=== PATIENT | male | born 1975 | race American Indian/Alaskan Native ===

== ENCOUNTER 2017-12-22 21:45 | Emergency (ER) | payer OTHER ==
[2017-12-22 23:20] VITALS: BP 151/98
[2017-12-22] MEDS ORDERED: MOTRIN ONE (23:39)
[2017-12-22] MEDS ORDERED: MOTRIN PO ONE (23:50)
[2017-12-23] MEDS ORDERED: PERCOCET 5/325 PO ONE (01:37)
--- NOTE | 2017-12-23 01:37 | Emergency Department Report ---
ED Lower Extremity HPI - General Chief Complaint: Extremity Injury, Lower Stated Complaint: KNEE PAIN Time Seen by Provider: 12/23/17 01:31 Source: patient Mode of arrival: Stretcher Limitations: Physical Limitation - History of Present Illness Initial Comments: 42-year-old -Stateless male with a known history of bilateral knee pain with reconstruction surgery comes in status post left knee given out and fell on it. Patient reports this happened approximately 736 on Sunday night. Patient baseline is ambulating with a walker. Patient reports that he just gave out complains of swelling in excruciating pain. Patient has a past medical history of several left patellar tendon repairs. Which the last one was on 10/23/2017, April 2017. His orthopedist surgeon was Dr. Earnest Tafoya. Patient was in rehabilitation discharge of November 2017. He does have a past medical history of hypertension, type 2 diabetes, hyperlipidemia and SIR patient also has a past medical history of a DVT MD Complaint: knee injury -: This evening Time: 19:35 Injury: Knee: Left Type of Injury: blunt Place: home Severity scale (0 -10): 10 Improves With: nothing Worsens With: weight bearing, movement, palpation Context: fall Associated Symptoms: swelling, unable to bear weight - Related Data Home Medications Medication Instructions Recorded Confirmed Last Taken Amlodipine Besylate/Benazepril 1 each PO DAILY 05/24/15 10/20/17 Unknown [Amlodipine-Benazepril 10-20 mg] Fenofibrate 48 mg PO HS 10/20/17 10/20/17 Unknown Janumet 50-500 mg Tablet 1 caplet PO BID 10/20/17 10/20/17 Unknown diazePAM TAB [Valium] 10 mg PO TID PRN 10/20/17 10/20/17 Unknown Previous Rx's Medication Instructions Recorded Last Taken Type oxyCODONE /ACETAMINOPHEN [Percocet 1 tab PO Q6H PRN #14 tablet 12/23/17 Unknown Rx 5/325 mg] Allergies Allergy/AdvReac Type Severity Reaction Status Date / Time No Known Allergies Allergy Unverified 05/24/15 17:08 ED Review of Systems ROS: Stated complaint: KNEE PAIN Other details as noted in HPI Comment: All other systems reviewed and negative Gastrointestinal: denies: abdominal pain, nausea, diarrhea Genitourinary: denies: urgency, dysuria Musculoskeletal: joint swelling (left knee), arthralgia (left knee) Skin: denies: rash, lesions Psychiatric: denies: anxiety, depression ED Past Medical Hx - Past Medical History Hx Hypertension: Yes Hx Congestive Heart Failure: No Hx Diabetes: Yes Hx Asthma: No Hx COPD: No - Surgical History Additional Surgical History: Bilateral knee surgery. - Social History Smoking Status: Never Smoker Substance Use Type: None - Medications Home Medications: Home Medications Medication Instructions Recorded Confirmed Last Taken Type Amlodipine Besylate/Benazepril 1 each PO DAILY 05/24/15 10/20/17 Unknown History [Amlodipine-Benazepril 10-20 mg] Fenofibrate 48 mg PO HS 10/20/17 10/20/17 Unknown History Janumet 50-500 mg Tablet 1 caplet PO BID 10/20/17 10/20/17 Unknown History diazePAM TAB [Valium] 10 mg PO TID PRN 10/20/17 10/20/17 Unknown History oxyCODONE /ACETAMINOPHEN [Percocet 1 tab PO Q6H PRN #14 tablet 12/23/17 Unknown Rx 5/325 mg] ED Physical Exam - General Limitations: Physical Limitation General appearance: alert, in no apparent distress - Head Head exam: Present: atraumatic, normocephalic - Eye Eye exam: Present: EOMI - ENT ENT exam: Present: mucous membranes moist - Respiratory Respiratory exam: Present: normal lung sounds bilaterally. Absent: respiratory distress - Cardiovascular Cardiovascular Exam: Present: regular rate, normal rhythm. Absent: systolic murmur, diastolic murmur, rubs, gallop - Expanded Lower Extremity Exam Left Knee exam: Present: tenderness, swelling, effusion, full knee extension. Absent : full ROM, laceration, ecchymosis Lower Leg exam: Absent: tenderness, swelling, abrasion Ankle exam: Present: normal inspection, full ROM. Absent: tenderness, swelling Neuro vascular tendon exam: Present: no vascular compromise. Absent: abnormal cap refill Gait: Positive: unable to bear weight - Neurological Exam Neurological exam: Present: alert, oriented X3 - Psychiatric Psychiatric exam: Present: normal affect, normal mood - Skin Skin exam: Present: warm, dry, intact, normal color. Absent: rash ED Course Vital Signs 12/22/17 12/22/17 23:13 23:43 Temperature 98.9 F 98.9 F Pulse Rate 114 H 110 H Respiratory 18 18 Rate Blood Pressure 151/98 151/98 O2 Sat by Pulse 99 99 Oximetry ED Lower Extremity MDM - Radiology Data Radiology results: report reviewed FINDINGS: Three views of the left knee obtained. New from prior study, there is a transverse fracture extending through the mid patella. There is separation of fracture segments by approximately 2.4 centimeters. Prominent soft tissue swelling. There fragmentation at the inferior margin the patella is seen on prior study compatible sequelae of prior avulsive injury. No other acute fracture. Medial lateral joint space compartments are grossly preserved. IMPRESSION: Acute transverse fracture of the mid patella with separation of the fracture segments by 2.4 centimeters. Prominent soft tissue swelling. Prior avulsive injury involving the inferior margin of the left patella. Transcribed By: LMA Dictated By: TRAVIS MERCHANT MD Electronically Authenticated By: TRAVIS MERCHANT MD Signed Date/Time: 12/23/17199 DD/ 9 TD/TT: 12/23/17199 - Medical Decision Making Patient has been evaluated by this provider in fast track. Percocet 5/325 was given for pain management X-ray of left knee obtained that shows severe is a transverse fracture extending to the mid patella Spoke to Dr. 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 We'll discuss with patient the plan. Critical care attestation.: If time is entered above; I have spent that time in minutes in the direct care of this critically ill patient, excluding procedure time. ED Disposition Clinical Impression: Left patella fracture Qualifiers: Encounter type: initial encounter Fracture type: closed Fracture morphology: transverse Fracture alignment: displaced Qualified Code(s): S82.032A - Displaced transverse fracture of left patella, initial encounter for closed fracture Disposition: TO HOME OR SELFCARE Is pt being admited?: No Does the pt Need Aspirin: No Condition: Stable Instructions: Patellar Fracture (ED) Additional Instructions: Please take pain medication as prescribed. Please call Dr. Tafoya's office Sunday morning to be seen on Sunday. Please wear knee immobilizer and use wheelchair for mobility until you are evaluated by Dr. Tafoya. I recommend no weightbearing at all on that left knee. Prescriptions: oxyCODONE /ACETAMINOPHEN [Percocet 5/325 mg] 1 tab PO Q6H PRN #14 tablet PRN Reason: Pain, Moderate (4-6) Referrals: PRIMARY CARE, [Primary Care Provider] - 3-5 Days EARNEST TAFOYA MD [Staff Physician] - 3-5 Days
--- NOTE | 2017-12-23 02:01 | XRay Report ---
FINAL REPORT EXAM: XR KNEE 3V LT HISTORY: Left knee swelling and pain COMPARISON: September 2017. FINDINGS: Three views of the left knee obtained. New from prior study, there is a transverse fracture extending through the mid patella. There is separation of fracture segments by approximately 2.4 centimeters. Prominent soft tissue swelling. There fragmentation at the inferior margin the patella is seen on prior study compatible sequelae of prior avulsive injury. No other acute fracture. Medial lateral joint space compartments are grossly preserved. IMPRESSION: Acute transverse fracture of the mid patella with separation of the fracture segments by 2.4 centimeters. Prominent soft tissue swelling. Prior avulsive injury involving the inferior margin of the left patella.
== END 2017-12-23 03:20 | disposition home or self-care (01) ==
LOC: ED 21:45
DX: S82.032A Displaced transverse fracture of left patella, initial encounter for closed fracture (principal); I10 Essential (primary) hypertension; E11.9 Type 2 diabetes mellitus without complications; W01.198A Fall on same level from slipping, tripping and stumbling with subsequent striking against other object, initial encounter; Y93.89 Activity, other specified; Y92.89 Other specified places as the place of occurrence of the external cause; Y99.8 Other external cause status

== ENCOUNTER 2017-12-31 10:20 | Observation (INO) | payer OTHER ==
[~2017-12-31 10:20] MED LIST: ANCEF/STERILE WATER 2 GM/20 ML IV NR
--- NOTE | 2017-12-31 12:08 | Anesthesia Day of Surgery ---
Anesthesia Day of Surgery - Day of Surgery Patient Examined: Yes Patient H&P Reviewed: Yes Patient is NPO: Yes
--- NOTE | 2017-12-31 12:08 | Anesthesia Consultation ---
Anesthesia Consult and Med Hx Date of service: 12/31/17 - Airway Anesthetic Teeth Evaluation: Good ROM Head & Neck: Adequate Mental/Hyoid Distance: Adequate Mallampati Class: Class I Intubation Access Assessment: Good - Pulmonary Exam CTA: Yes - Cardiac Exam Cardiac Exam: RRR - Pre-Operative Health Status ASA Pre-Surgery Classification: ASA3 Proposed Anesthetic Plan: General - Pre-Anesthesia Comment Pre-Anesthesia Comments: Patient tolerates 4 METs. Limited by bilateral leg weakness (since 2017). Denies EARNEST. No Chest Pain or SOB. No cold or flu. No N/V or motion sickness - Pulmonary Hx Smoking: No Hx Asthma: No COPD: No Hx Pneumonia: No Hx Sleep Apnea: No (EARNEST PRE SCREEN HIGH RISK) - Cardiovascular System Hx Hypertension: Yes (X 5 YRS) - Central Nervous System Hx Psychiatric Problems: No - Other Systems Hx Cancer: No
[2017-12-31] MEDS ORDERED: DILAUDID ONE ×3 (12:13→15:14)
[2017-12-31] MEDS ORDERED: DIPRIVAN 10 MG/ML IV ONE (12:14)
[2017-12-31] MEDS ORDERED: VERSED ONE (12:47)
[2017-12-31] MEDS ORDERED: NAROPIN O.5% ONE (12:47)
[2017-12-31] MEDS ORDERED: SUBLIMAZE ONE ×2 (12:48→13:59)
[2017-12-31] MEDS ORDERED: LACTATED RINGERS 1,000 ML IV SCH (13:17)
[2017-12-31] MEDS ORDERED: ZOFRAN ONE (14:29)
[2017-12-31] MEDS ORDERED: XYLOCAINE MPF 2% ONE (14:29)
[2017-12-31] MEDS ORDERED: BREVIBLOC IV ONE (14:29)
[2017-12-31] MEDS ORDERED: DEMEROL ONE (15:14)
[2017-12-31] MEDS ORDERED: NORMODYNE IV ONE ×2 (15:15→15:19)
[2017-12-31] MEDS ORDERED: DEMEROL IV PRN (15:20)
[2017-12-31] MEDS ORDERED: LACTATED RINGERS 1,000 ML ONE (15:21)
--- NOTE | 2017-12-31 15:31 | XRay Report ---
LEFT KNEE, 2 VIEWS History: Left patellar fracture. Findings: Frontal and lateral fluoroscopic images of the left knee were obtained during surgery. The images demonstrate open reduction and internal fixation of a transverse patellar fracture. Alignment is near-anatomic. Please correlate with the operative report as needed. Impression: Open reduction and internal fixation of a left patella fracture.
[2017-12-31] MEDS ORDERED: DILAUDID IV PRN (15:33)
[2017-12-31] MEDS ORDERED: ROXICODONE PO ONE (17:00)
--- NOTE | 2017-12-31 17:48 | Procedure Note ---
Date of procedure: 12/31/17 Pre-op diagnosis: Displaced left patellar fracture Post-op diagnosis: same Procedure: open reduction internal fixation left patella Procedure The patient was brought to the OR and following a femoral nerve block for postop pain management he was then placed onto the OR table in the supine position. Using Mac anesthesia the patient was anesthetized followed by routine prep and drape of the left lower extremity. A timeout procedure was done to identify the patient and the correct operative site. Utilizing the previous midline incision for the patient's patellar tendon rupture incision was taken down sharply through skin and subcutaneous the fracture site was identified patient was noted to have fairly large separation of the fracture fragments with a large hemarthrosis encountered and subsequently drained patient also was noted to have an organizing hematoma at the fracture site this hematoma was debrided The knee joint was inspected there did not appear to be any ostial cartilaginous injuries deep within the joint itself next the fracture fragments were then manipulated into a more reduced position and held by way of 2 large bone clamps and AP and lateral view was obtained using C-arm fluoroscopy the fracture fragments appeared to be anatomically reduced. 2 parallel K wires were inserted into the patella under C-arm visualization this was then followed by insertion of 2 cannulated screws to compress the fracture site again AP and lateral views were obtained showing good reduction of the fracture and placement of the cannulated screws. Following this the medial and lateral retinacula I were repaired using #1 Vicryl the subcutaneous tissues were closed with 0 and 2-0 Vicryl a zip line suture was placed on the skin followed by application of routine postoperative dressings. The patient was placed in a knee immobilizer with a Cryo/Cuff cooling device for postop pain management and swelling. The patient was extubated and was taken to postanesthesia recovery in a stable condition Anesthesia: MAC, regional Surgeon: JUVENAL CANO (Mable Ocampo, 1st assist) Estimated blood loss: minimal Pathology: none Condition: stable Disposition: PACU
[2017-12-31] MEDS ORDERED: MORPHINE IV PRN (18:05)
[2017-12-31] MEDS ORDERED: SODIUM CHLORIDE FLUSH SYRINGE 10 ML IV SCH (19:00)
--- NOTE | 2017-12-31 20:17 | Post Anesthesia Evaluation ---
- Post Anesthesia Evaluation Patient Participated: Yes Airway Patent: Yes Stable Respiratory Function: Yes Nausea/Vomiting: No Temp > 96.8F: Yes Pain Manageable: Yes Adequeate Hydration: Yes Anesthesia Complications: No Block Receding Appropriately: Not Applicable Patient on Ventilator: No
[2017-12-31] MEDS ORDERED: APRESOLINE IV PRN (21:28)
[2017-12-31] MEDS: NORCO 5/325 PO PRN (23:59)
--- NOTE | 2018-01-01 08:52 | Progress Note ---
Assessment and Plan s/p ORIF left patellar fracture doing well will dc to home today with f/u appointment in office 10 days Subjective Date of service: 01/01/18 Interval history: c/o mild incisional pain, otherwise doing ok Objective Vital signs: Vital Signs - 12hr 01/01/18 01/01/18 00:13 05:01 Temperature 99.0 F 99.5 F Pulse Rate 96 H 106 H Respiratory 18 18 Rate Blood Pressure 144/90 142/90 O2 Sat by Pulse 99 96 Oximetry Incision: healing, clean and dry Weight bearing status: full - Labs CBC & BMP: 01/01/18 04:07 Labs: Abnormal lab results 12/31/17 12/31/17 01/01/18 Range/Units 12:13 15:31 00:23 Creatinine (0.8-1.5) mg/dL POC Glucose 126 H 136 H 133 H (70-105) 01/01/18 Range/Units 04:07 Creatinine 0.6 L (0.8-1.5) mg/dL POC Glucose (70-105)
[2018-01-01] MEDS: NORCO 5/325 PO PRN (09:23)
[2018-01-01 09:38] VITALS: BP 130/77
[2018-01-01] MEDS ORDERED: LOVENOX SUB-Q SCH (10:00)
== END 2018-01-01 13:20 | disposition home or self-care (01) ==
LOC: OR 10:20 → 3B-SURG 17:16
PROVIDERS: ADMIT Orthopaedic Surgery; ATTEND Orthopaedic Surgery
DX: S82.002A Unspecified fracture of left patella, initial encounter for closed fracture (principal); F41.9 Anxiety disorder, unspecified; F32.9 Major depressive disorder, single episode, unspecified; E11.9 Type 2 diabetes mellitus without complications; I10 Essential (primary) hypertension; E78.00 Pure hypercholesterolemia, unspecified; R12 Heartburn; G47.30 Sleep apnea, unspecified; W18.30XA Fall on same level, unspecified, initial encounter
CPT/HCPCS: 27524; 36415; 64450; 73560; 82565; 82962; 84132; 96372; 96374; 96375; 97161; C1713; G0378; J0690; J1170; J1650; J2175; J2250; J2270; J2405; J2704; J2795; J3010; J7120

== ENCOUNTER 2018-07-08 12:49 | Emergency (ER) | payer OTHER ==
--- NOTE | 2018-07-08 13:20 | Emergency Department Report ---
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 Due to findings the following was ordered: UA, labs ED Disposition for MSE Condition: Stable
[2018-07-08 14:12] LABS: Basophils # (Auto) 0.2 K/mm3 (0.0-0.1); Basophils % (Auto) 1.2 % (0.0-1.8); Eosinophils # (Auto) 0.1 K/mm3 (0.0-0.4); Eosinophils % (Auto) 0.7 % (0.0-4.3); Hematocrit 46.2 % (35.5-45.6); Hemoglobin 14.5 gm/dl (11.8-15.2); Lymphocytes # (Auto) 2.7 K/mm3 (1.2-5.4); Lymphocytes % (Auto) 20.6 % (13.4-35.0); Mean Corpuscular HGB Conc 31 % (32-34); Mean Corpuscular Volume 79 fl (84-94); Monocytes # (Auto) 0.9 K/mm3 (0.0-0.8); Monocytes % (Auto) 6.9 % (0.0-7.3); Platelet Count 429 K/mm3 (140-440); Red Blood Count 5.86 M/mm3 (3.65-5.03); Red Cell Distribution Width 14.2 % (13.2-15.2)
[2018-07-08 14:29] LABS: Alanine Aminotransferase 35 units/L (7-56); Albumin 4.3 g/dL (3.9-5); BUN/Creatinine Ratio 13; Blood Urea Nitrogen 10 mg/dL (9-20); Hemolysis Index 16
[2018-07-08 16:39] LABS: Bilirubin,Urine NEG (Negative); Blood,Urine NEG (Negative); Color,Urine Yellow (Yellow); Mucus,Urine FEW /HPF; Protein,Urine <15 mg/dL mg/dL (Negative); WBC,Urine < 1.0 /HPF (0.0-6.0)
--- NOTE | 2018-07-08 17:10 | Emergency Department Report ---
HPI - General Chief Complaint: Weakness Time Seen by Provider: 07/08/18 13:17 - HPI HPI: 43-year-old -[place] male presents to the ED with generalized weakness, has bilateral knee issues, for which she is getting physical therapy. States that he has been feeling weak and physical therapy. Denies any chest pain, shortness of breath. Denies any focal weakness. ED Past Medical Hx - Past Medical History Hx Hypertension: Yes (X 5 YRS) Hx Congestive Heart Failure: No Hx Diabetes: Yes Hx GERD: Yes Hx Asthma: No Hx COPD: No Hx HIV: No - Surgical History Additional Surgical History: Bilateral knee surgery. - Social History Smoking Status: Never Smoker Substance Use Type: None - Medications Home Medications: Home Medications Medication Instructions Recorded Confirmed Last Taken Type Amlodipine Besylate/Benazepril 1 each PO DAILY 05/24/15 12/31/17 12/31/17 History [Amlodipine-Benazepril 10-20 mg] Fenofibrate 48 mg PO HS 10/20/17 12/31/17 12/29/17 History Janumet 50-500 mg Tablet 1 caplet PO BID 10/20/17 12/31/17 12/29/17 History HYDROcodone/ACETAMINOPHEN 1 tab PO PRN PRN 12/27/17 12/31/17 12/29/17 History [Hydrocodone-Acetamin 5-325 mg] Oxycodone HCl [oxyCODONE TAB] 10 mg PO Q6H PRN #30 tablet 12/31/17 Unknown Rx Zolpidem [Ambien] 10 mg PO QHS PRN #10 tab 01/01/18 Unknown Rx Ferrous Sulfate [Iron 325 MG] 325 mg PO BID #15 tablet 07/08/18 Unknown Rx ED Review of Systems ROS: Stated complaint: WEAKNESS/FATIGUE Other details as noted in HPI Comment: All other systems reviewed and negative Cardiovascular: denies: chest pain, palpitations Endocrine: denies: excessive sweating Gastrointestinal: denies: abdominal pain, nausea Skin: denies: rash Neurological: weakness. denies: headache Physical Exam - Physical Exam Vital Signs: Vital Signs 07/08/18 13:18 Temperature 98.4 F Pulse Rate 98 H Respiratory 18 Rate Blood Pressure 130/81 O2 Sat by Pulse 99 Oximetry Physical Exam: - Physical Exam Physical Exam: - General Limitations: No Limitations General appearance: alert, in no apparent distress. - Head Head exam: Present: atraumatic, normocephalic - Eye Eye exam: Present: normal appearance - ENT ENT exam: Present: mucous membranes moist - Neck Neck exam: Present: normal inspection - Respiratory Respiratory exam: Present: normal lung sounds bilaterally. Absent: respiratory distress - Cardiovascular Cardiovascular Exam: Present: normal rhythm. Absent: systolic murmur, diastolic murmur, rubs, gallop - GI/Abdominal GI/Abdominal exam: Present: soft, normal bowel sounds - Extremities Exam Extremities exam: Present: normal inspection - Back Exam Back exam: Present: normal inspection - Neurological Exam Neurological exam: Present: alert, oriented X3 - Psychiatric Psychiatric exam: normal affect and mood - Skin Skin exam: Present: warm, dry, intact, normal color. Absent: rash ED Course Vital Signs 07/08/18 13:18 Temperature 98.4 F Pulse Rate 98 H Respiratory 18 Rate Blood Pressure 130/81 O2 Sat by Pulse 99 Oximetry ED Medical Decision Making - Lab Data Result diagrams: 07/08/18 13:33 07/08/18 13:33 - Medical Decision Making Microcytic anemia, prescription firing given, advised to follow up with PCP VERONICA. - Differential Diagnosis flu, URI, myositis Critical care attestation.: If time is entered above; I have spent that time in minutes in the direct care of this critically ill patient, excluding procedure time. ED Disposition Clinical Impression: Weakness, Microcytic anemia Disposition: DC-01 TO HOME OR SELFCARE Is pt being admited?: No Does the pt Need Aspirin: No Condition: Stable Prescriptions: Ferrous Sulfate [Iron 325 MG] 325 mg PO BID #15 tablet Referrals: CELENA ALICIA MD [Primary Care Provider] - 3-5 Days
[2018-07-09 19:04] VITALS: BP 130/80
== END 2018-07-08 17:26 | disposition home or self-care (01) ==
LOC: ED 12:49
DX: D50.9 Iron deficiency anemia, unspecified (principal); I10 Essential (primary) hypertension; E11.9 Type 2 diabetes mellitus without complications; K21.9 Gastro-esophageal reflux disease without esophagitis
CPT/HCPCS: 36415; 80053; 81001; 82550; 85025; 99283

== ENCOUNTER 2018-08-18 22:08 | Emergency (ER) | payer SELFPAY ==
[2018-08-18 22:21] VITALS: BP 148/92
--- NOTE | 2018-08-19 01:09 | Emergency Department Report ---
- General Chief Complaint: Upper Respiratory Infection Stated Complaint: SINUS INFECTION /BP Time Seen by Provider: 08/18/18 23:57 Source: patient Mode of arrival: Ambulatory Limitations: No Limitations - History of Present Illness Initial Comments: Pt is a 43 yo male who presents to the ED with c/o a nasal congestion that began a year ago. The patient has associated nasal discharge, chills, post nasal drip, itchy throat. The patient states he has been seeing his PCP and has been placed on amoxicillin, augmentin, bactrim, flonase, zyrtec, and steroids twice. The patient has not seen an ENT doctor. he denies any fever. PMHx of HTN/DM. - Related Data Home Medications Medication Instructions Recorded Confirmed Last Taken Amlodipine Besylate/Benazepril 1 each PO DAILY 05/24/15 12/31/17 12/31/17 [Amlodipine-Benazepril 10-20 mg] Fenofibrate 48 mg PO HS 10/20/17 12/31/17 12/29/17 Janumet 50-500 mg Tablet 1 caplet PO BID 10/20/17 12/31/17 12/29/17 HYDROcodone/ACETAMINOPHEN 1 tab PO PRN PRN 12/27/17 12/31/17 12/29/17 [Hydrocodone-Acetamin 5-325 mg] Previous Rx's Medication Instructions Recorded Last Taken Type Oxycodone HCl [oxyCODONE TAB] 10 mg PO Q6H PRN #30 tablet 12/31/17 Unknown Rx Zolpidem [Ambien] 10 mg PO QHS PRN #10 tab 01/01/18 Unknown Rx Ferrous Sulfate [Iron 325 MG] 325 mg PO BID #15 tablet 07/08/18 Unknown Rx Levocetirizine Dihydrochloride 5 mg PO DAILY #30 tablet 08/19/18 Unknown Rx [Xyzal] Loratadine [Claritin] 10 mg PO DAILY #20 tablet 08/19/18 Unknown Rx Ofloxacin 0.3% [Floxin 0.3% Otic] 10 drops OT DAILY 7 Days #1 bottle 08/19/18 Unknown Rx Olopatadine HCl [Patanase] 1 spray NS DAILY #1 spray.pump 08/19/18 Unknown Rx Sea Salt/Citr/Cit AC/Bicarb/Av 1 each NS DAILY #14 powd.pack 08/19/18 Unknown Rx [Nasalcare Rinse Kit] Allergies Allergy/AdvReac Type Severity Reaction Status Date / Time No Known Allergies Allergy Verified 12/27/17 15:48 ED Review of Systems ROS: Stated complaint: SINUS INFECTION /BP Other details as noted in HPI Comment: All other systems reviewed and negative ED Past Medical Hx - Past Medical History Hx Hypertension: Yes (X 5 YRS) Hx Congestive Heart Failure: No Hx Diabetes: Yes Hx GERD: Yes Hx Asthma: No Hx COPD: No Hx HIV: No - Surgical History Additional Surgical History: Bilateral knee surgery. - Social History Smoking Status: Never Smoker Substance Use Type: None - Medications Home Medications: Home Medications Medication Instructions Recorded Confirmed Last Taken Type Amlodipine Besylate/Benazepril 1 each PO DAILY 05/24/15 12/31/17 12/31/17 History [Amlodipine-Benazepril 10-20 mg] Fenofibrate 48 mg PO HS 10/20/17 12/31/17 12/29/17 History Janumet 50-500 mg Tablet 1 caplet PO BID 10/20/17 12/31/17 12/29/17 History HYDROcodone/ACETAMINOPHEN 1 tab PO PRN PRN 12/27/17 12/31/17 12/29/17 History [Hydrocodone-Acetamin 5-325 mg] Oxycodone HCl [oxyCODONE TAB] 10 mg PO Q6H PRN #30 tablet 12/31/17 Unknown Rx Zolpidem [Ambien] 10 mg PO QHS PRN #10 tab 01/01/18 Unknown Rx Ferrous Sulfate [Iron 325 MG] 325 mg PO BID #15 tablet 07/08/18 Unknown Rx Levocetirizine Dihydrochloride 5 mg PO DAILY #30 tablet 08/19/18 Unknown Rx [Xyzal] Loratadine [Claritin] 10 mg PO DAILY #20 tablet 08/19/18 Unknown Rx Ofloxacin 0.3% [Floxin 0.3% Otic] 10 drops OT DAILY 7 Days #1 bottle 08/19/18 Unknown Rx Olopatadine HCl [Patanase] 1 spray NS DAILY #1 spray.pump 08/19/18 Unknown Rx Sea Salt/Citr/Cit AC/Bicarb/Av 1 each NS DAILY #14 powd.pack 08/19/18 Unknown Rx [Nasalcare Rinse Kit] ED Physical Exam - General Limitations: No Limitations General appearance: alert, in no apparent distress - Head Head exam: Present: atraumatic, normocephalic - Eye Eye exam: Present: normal appearance, PERRL - ENT ENT exam: Present: normal orophraynx, other (pale, boggy turbinates bilaterally with clear nasal discharge, right ear canal with erythema present, bilateral TMs, left ear canal is normal) - Respiratory Respiratory exam: Present: normal lung sounds bilaterally. Absent: respiratory distress, wheezes, rales, rhonchi, stridor, chest wall tenderness, accessory muscle use, decreased breath sounds, prolonged expiratory - Cardiovascular Cardiovascular Exam: Present: regular rate, normal rhythm, normal heart sounds. Absent: systolic murmur, diastolic murmur, rubs, gallop - Neurological Exam Neurological exam: Present: alert, oriented X3 - Psychiatric Psychiatric exam: Present: normal affect, normal mood - Skin Skin exam: Present: warm, dry, intact ED Course Vital Signs 08/18/18 08/18/18 22:13 22:23 Temperature 98.5 F 98.5 F Pulse Rate 92 H 89 Respiratory 18 16 Rate Blood Pressure 148/92 Blood Pressure 148/92 [Left] O2 Sat by Pulse 99 99 Oximetry ED Medical Decision Making - Medical Decision Making Pt is a 43 yo male who presents to the ED with c/o a nasal congestion that began a year ago. The patient has associated nasal discharge, chills, post nasal drip, itchy throat. The patient states he has been seeing his PCP and has been placed on amoxicillin, augmentin, bactrim, flonase, zyrtec, and steroids twice. The patient has not seen an ENT doctor. he denies any fever. PMHx of HTN/DM. on examination pt has pale, boggy turbinates bilaterally with clear nasal discharge, no erythema of the turbinates, no purulent discharge in the nares, pt has erythema of the right ear canal most likely otitis externa, given abx drops. pt also given claritin, patanase, xyzal, and nasal rinse kit. advised to use the nasal rinse kit first then do the patanase. advised pt to follow up with his PCP in the next 2-3 days for reexamination and to discuss evaluation by ENT and aquarium specialist. pt given list of ENT in the area. advised to return to the ED fo r any new or worsening symptoms. Critical care attestation.: If time is entered above; I have spent that time in minutes in the direct care of this critically ill patient, excluding procedure time. ED Disposition Clinical Impression: Allergic rhinitis Qualifiers: Allergic rhinitis trigger: unspecified Allergic rhinitis seasonality: unspecified Qualified Code(s): J30.9 - Allergic rhinitis, unspecified Otitis externa Qualifiers: Otitis externa type: unspecified type Chronicity: acute Laterality: right Qualified Code(s): H60.501 - Unspecified acute noninfective otitis externa, right ear Disposition: - TO HOME OR SELFCARE Is pt being admited?: No Does the pt Need Aspirin: No Condition: Stable Instructions: Otitis Externa (ED), Allergic Rhinitis (ED) Additional Instructions: Please use all medication as prescribed. Please follow up with an ENT in the next 2-3 days. Please follow up with your primary care doctor in the next 2-3 days and discuss follow up with ENT and aquarium specialist. use warm nasal washes before you use olopatadine. return to the emergency room for any new or worsening symptoms. Norris Soriano MD, ENT Address: [address] [place] [address] [address], [place] [id number] Prescriptions: Loratadine [Claritin] 10 mg PO DAILY #20 tablet Ofloxacin 0.3% [Floxin 0.3% Otic] 10 drops OT DAILY 7 Days #1 bottle Sea Salt/Citr/Cit AC/Bicarb/Av [Nasalcare Rinse Kit] 1 each NS DAILY #14 powd.pack Olopatadine HCl [Patanase] 1 spray NS DAILY #1 spray.pump Levocetirizine Dihydrochloride [Xyzal] 5 mg PO DAILY #30 tablet Referrals: [facility] [Other] - 2-3 Days MOODY FINNEGAN MD [Staff Physician] - 3-5 Days Time of Disposition: 01:11 Print Language: KOREAN
== END 2018-08-19 01:27 | disposition home or self-care (01) ==
LOC: ED 22:08
DX: J30.9 Allergic rhinitis, unspecified (principal); H60.501 Unspecified acute noninfective otitis externa, right ear; I10 Essential (primary) hypertension; E11.9 Type 2 diabetes mellitus without complications; K21.9 Gastro-esophageal reflux disease without esophagitis; Z79.899 Other long term (current) drug therapy
CPT/HCPCS: 99282

== ENCOUNTER 2019-02-11 09:20 | Emergency (ER) | payer OTHER ==
[2019-02-11 12:12] LABS: Basophils # (Auto) 0.1 K/mm3 (0.0-0.1); Eosinophils # (Auto) 0.1 K/mm3 (0.0-0.4); Eosinophils % (Auto) 0.6 % (0.0-4.3); Monocytes # (Auto) 0.6 K/mm3 (0.0-0.8); Monocytes % (Auto) 7.2 % (0.0-7.3)
[2019-02-11 12:27] LABS: Alanine Aminotransferase 15 units/L (7-56); Albumin 4.5 g/dL (3.9-5); BUN/Creatinine Ratio 12; Blood Urea Nitrogen 11 mg/dL (9-20); Calcium 9.9 mg/dL (8.4-10.2); Hemolysis Index 10
[2019-02-11 12:49] LABS: Hematocrit 43.8 % (35.5-45.6); Hemoglobin 13.7 gm/dl (11.8-15.2); Lymphocytes # (Auto) 1.7 K/mm3 (1.2-5.4); Lymphocytes % (Auto) 18.8 % (13.4-35.0); Mean Corpuscular HGB Conc 31 % (32-34); Mean Corpuscular Volume 78 fl (84-94); Platelet Count 344 K/mm3 (140-440); Red Blood Count 5.59 M/mm3 (3.65-5.03); Red Cell Distribution Width 13.4 % (13.2-15.2)
[2019-02-11 14:01] VITALS: BP 155/44
== END 2019-02-11 14:37 | disposition home or self-care (01) ==
LOC: ED 09:20
DX: M54.9 Dorsalgia, unspecified (principal); Z53.21 Procedure and treatment not carried out due to patient leaving prior to being seen by health care provider
CPT/HCPCS: 36415; 80053; 85025; 93005; 93010

== ENCOUNTER 2019-05-09 18:48 | Emergency (ER) | payer OTHER ==
[2019-05-09 19:12] VITALS: BP 146/84
--- NOTE | 2019-05-09 19:12 | Emergency Department Report ---
Chief Complaint: Extremity Injury, Lower Stated Complaint: LOWER BODY WEAK/LEG NUMB Time Seen by Provider: 05/09/19 19:07 - HPI History of Present Illness: 44 y/o male comes in for legs feeling heavy. Reports right leg has pain since Sunday. Has a PCP but has not followed up with them. S/HX knee surgery in both snapped patellar 1 year ago. MSE screening note: Focused history and physical exam performed. Due to findings the following was ordered: ED Disposition for MSE Condition: Stable
--- NOTE | 2019-05-09 19:15 | Event Note ---
ED Screening Note Date of service: 05/09/19 Time: 19:14 ED Screening Note: 44 y/o male comes in for legs feeling heavy. Reports right leg has pain since Sunday. Has a PCP but has not followed up with them. S/HX knee surgery in both snapped patellar 1 year ago. This initial assessment/diagnostic orders/clinical plan/treatment(s) is/are subject to change based on patients health status, clinical progression and re- assessment by fellow clinical providers in the ED. Further treatment and workup at subsequent clinical providers discretion. Patient/guardian urged not to elope from the ED as their condition may be serious if not clinically assessed and managed. Initial orders include:
== END 2019-05-09 19:10 | disposition home or self-care (01) ==
LOC: ED 18:48
DX: M79.669 Pain in unspecified lower leg (principal)
CPT/HCPCS: 99282

== ENCOUNTER 2020-05-10 09:46 | Outpatient (CLI) | payer MEDICARE ==
--- NOTE | 2020-05-10 10:22 | XRay Report ---
LUMBOSACRAL SPINE 5 VIEWS INDICATION: BACK PAIN. COMPARISON: None. IMPRESSION: No acute osseous or soft tissue abnormality. Minimal disc space narrowing and facet a rthropathy is identified at L3-4. The remaining levels are within normal limits. Signer Name: Sudheer Reese Jr, MD Signed: 05/10/2020 10:17 AM Workstation Name: [id number]
== END 2020-05-10 09:47 | disposition home or self-care (01) ==
LOC: XRAY 09:46
PROVIDERS: ATTEND Orthopaedic Surgery
DX: M47.817 Spondylosis without myelopathy or radiculopathy, lumbosacral region (principal)
CPT/HCPCS: 72110

== ENCOUNTER 2020-05-20 09:43 | Outpatient (CLI) | payer MEDICARE ==
--- NOTE | 2020-05-20 13:05 | Magnetic Resonance Report ---
MRI LUMBAR SPINE 05/20/2020 INDICATION / CLINICAL INFORMATION: LOW BACK PAIN. COMPARISON: None available. FINDINGS: GENERAL OBSERVATIONS: Unenhanced MR images of the lumbar spine demonstrate no evidence of acute intra cranial abnormality. Lumbar vertebral body height and alignment is well preserved. There is some compression involving the upper endplate of T12 associated with degenerative pattern o f bone marrow signal change. There is no evidence of acute abnormality. [id number] ANALYSIS: L5-S1: Disc profile is well preserved. Mild bilateral facet degenerative changes. L4-5: Mild diffuse disc bulging and facet degenerative changes. L3-4: Minimal diffuse disc bulging and mild facet degenerative changes. L2-3: Unremarkable. L1-2: Unremarkable. BONE MARROW: No significant abnormality. 2 cm hemangioma noted at L1. SPINAL CORD/CAUDA EQUINA: PARASPINAL SOFT TISSUES: No significant abnormality. IMPRESSION: Minimal degenerative changes. No evidence of stenosis or nerve root compression. Signer Name: Kirt Haynes MD Signed: 05/20/2020 1:01 PM Workstation Name: [id number]
== END 2020-05-20 09:44 | disposition home or self-care (01) ==
LOC: MRI 09:43
PROVIDERS: ATTEND Orthopaedic Surgery
DX: M47.817 Spondylosis without myelopathy or radiculopathy, lumbosacral region (principal); M51.26 Other intervertebral disc displacement, lumbar region; M47.814 Spondylosis without myelopathy or radiculopathy, thoracic region
CPT/HCPCS: 72148

== ENCOUNTER 2020-06-24 09:32 | Day surgery (SDC) | payer MEDICARE ==
[~2020-06-24 09:32] MED LIST changes: -ANCEF/STERILE WATER 2 GM/20 ML IV NR; +BUPIVACAINE/PF (0.5%) 5 MG/1 ML 30 ML VIAL INFILTRATI ONE; +LIDOCAINE (1%) 10 MG/1 ML VIAL 20 ML MDV INFILTRATI ONE; +LIDOCAINE (1%) 10 MG/1 ML VIAL 20 ML MDV ONE
[2020-06-24 10:47] VITALS: BP 138/86
[2020-06-24] MEDS ORDERED: LIDOCAINE (1%) 10 MG/1 ML VIAL 20 ML MDV INFILTRATI ONE ×2 (12:14)
[2020-06-24] MEDS ORDERED: LIDOCAINE (1%) 10 MG/1 ML VIAL 20 ML MDV ONE (12:15)
--- NOTE | 2020-06-24 13:57 | Procedure Note ---
Date of procedure: 06/24/20 Pre-op diagnosis: Chronic low back pain Post-op diagnosis: same Procedure: Lumbar facet blocks at left L2 through L5 Procedure The patient was brought to the OR and placed prone onto the OR table, the lumbar spine was prepped and draped in the usual sterile manner. A timeout procedure was done to identify the patient and the correct levels of nerve block being performed the patient was awake during the procedure. Using C-arm fluoroscopy the L5 through L2 levels were visualized in both the PA and 45 oblique views 20-gauge spinal needles were inserted again under direct fluoroscopic control after placing the spinal needles and the correct position and Marcaine injection was performed using 1% without epinephrine. The patient tolerated the procedure and no complications Anesthesia: local Surgeon: JUVENAL CANO Estimated blood loss: minimal Pathology: none Condition: stable Disposition: observation
--- NOTE | 2020-06-24 16:24 | XRay Report ---
Lumbar spine fluoroscopy 2 views INDICATION: Low back pain IMPRESSION: The left mid and lower lumbar spine facets were targeted with 4 separate percutaneous nee dles Fluoroscopy time: 2. Fluoroscopic images: 1 minute 43 seconds. Signer Name: Antonio Cortes MD Signed: 06/24/2020 4:20 PM Workstation Name: [id number]
== END 2020-06-24 12:57 | disposition home or self-care (01) ==
LOC: OR 09:32
PROVIDERS: ATTEND Orthopaedic Surgery
DX: M54.5 Low back pain (principal); G89.29 Other chronic pain; M47.817 Spondylosis without myelopathy or radiculopathy, lumbosacral region; I10 Essential (primary) hypertension; M51.36 Other intervertebral disc degeneration, lumbar region; E78.5 Hyperlipidemia, unspecified; E11.9 Type 2 diabetes mellitus without complications; K21.9 Gastro-esophageal reflux disease without esophagitis; F32.9 Major depressive disorder, single episode, unspecified; F41.9 Anxiety disorder, unspecified; Z79.899 Other long term (current) drug therapy; Z91.81 History of falling
CPT/HCPCS: 72100; 82962

== ENCOUNTER 2020-10-06 15:32 | Emergency (ER) | payer MEDICARE ==
[2020-10-06 16:36] VITALS: BP 105/82
[2020-10-06] MEDS ORDERED: MORPHINE 4 MG/1 ML INJ IV ONE (18:06)
[2020-10-06] MEDS ORDERED: SODIUM CHLORIDE 0.9% 1000 ML 1,000 ML IV ONE (18:06)
[2020-10-06 18:46] LABS: Basophils # (Auto) 0.1 K/mm3 (0.0-0.1); Basophils % (Auto) 0.7 % (0.0-1.8); Eosinophils % (Auto) 0.3 % (0.0-4.3); Hematocrit 41.8 % (35.5-45.6); Hemoglobin 13.1 gm/dl (11.8-15.2); Lymphocytes # (Auto) 2.3 K/mm3 (1.2-5.4); Lymphocytes % (Auto) 13.6 % (13.4-35.0); Mean Corpuscular HGB Conc 31 % (32-34); Mean Corpuscular Volume 79 fl (84-94); Monocytes # (Auto) 1.1 K/mm3 (0.0-0.8); Monocytes % (Auto) 6.5 % (0.0-7.3); Platelet Count 340 K/mm3 (140-440); Red Blood Count 5.29 M/mm3 (3.65-5.03); Red Cell Distribution Width 14.5 % (13.2-15.2)
--- NOTE | 2020-10-06 18:52 | XRay Report ---
PELVIS ONE VIEW INDICATION / CLINICAL INFORMATION: pain s/p fall COMPARISON: None available. FINDINGS: BONES / JOINT(S): No acute fracture or subluxation. There is mild degenerative change in the hip join ts bilaterally. SOFT TISSUES: No significant abnormality. ADDITIONAL FINDINGS: None. Signer Name: Wilfrido Dasilva MD Signed: 10/06/2020 6:48 PM Workstation Name: [id number]
--- NOTE | 2020-10-06 18:53 | XRay Report ---
LUMBAR SPINE 3 VIEWS INDICATION: pain s/p fall COMPARISON: None. FINDINGS: There is no fracture, subluxation, or other acute radiographic abnormality of the lumbar spine. There is scoliotic-like curvature convex to the left. Pedicles appear intact. Disc space heights are maintained. Signer Name: Wilfrido Dasilva MD Signed: 10/06/2020 6:49 PM Workstation Name: [id number]
[2020-10-06 19:17] LABS: Alanine Aminotransferase 25 units/L (7-56); Albumin 4.7 g/dL (3.9-5); BUN/Creatinine Ratio 16; Blood Urea Nitrogen 13 mg/dL (9-20); Calcium 10.1 mg/dL (8.4-10.2); Hemolysis Index 33
[2020-10-06 20:11] LABS: Bilirubin,Urine NEG (Negative); Blood,Urine NEG (Negative); Color,Urine Yellow (Yellow); Mucus,Urine 1+ /HPF; Protein,Urine <15 mg/dL mg/dL (Negative); Urobilinogen,Urine < 2.0 mg/dL (<2.0)
--- NOTE | 2020-10-06 20:44 | Emergency Department Report ---
ED Fall HPI - General Chief Complaint: Fall Stated Complaint: FALL Time Seen by Provider: 10/06/20 18:01 Source: patient Mode of arrival: Ambulatory Limitations: No Limitations - History of Present Illness Initial Comments: This is a 45-year-old male nontoxic, well nourished in appearance, no acute signs of distress presents to the ED with c/o of acute lower back pain and lower abdominal pain x 1 day. Patient stated that the had a trip and fall yesterday and landed to his lower back area. Patient stated since the fall he felt sharp abdominal pains. Patient otherwise denies any other injuries or trauma. Denies any neck or mid back pain. Patient denies any loss of consciousness. Patient denies any radiation of pain. Denies any bladder or bowel instability. Patient denies any urinary symptoms. Denies any fever, chills, nausea, vomiting, headache, stiff neck, chest pain or shortness of breath. Patient denies any numbness or tingling. Denies any allergies. MD Complaint: fall -: days(s) Fall From: standing Loss of Consciousness: none Prolonged Down Time?: no Symptoms Prior to Fall: none Location: back, abdomen Severity: mild Severity scale (0 -10): 3 Quality: aching Context: tripped/slipped Associated Symptoms: abdominal pain. denies: headache, neck pain, numbness, weakness, chest paint, shortness of breath, hematuria, unable to walk, lightheaded, vertigo, confusion - Related Data Home Medications Medication Instructions Recorded Confirmed Last Taken Amlodipine Besylate/Benazepril 1 each PO DAILY 05/24/15 06/24/20 06/24/20 08:00 [Amlodipine-Benazepril 10-20 mg] Janumet 50-500 mg Tablet 1 caplet PO BID 10/20/17 06/24/20 06/23/20 09:00 Alprazolam 1 mg PO HS PRN 06/18/20 06/24/20 06/17/20 09:00 Meloxicam 15 mg PO DAILY 06/18/20 06/24/20 06/21/20 09:00 Motrin 800 MG tab 800 mg PO TID 06/18/20 06/24/20 06/24/20 02:00 Tylenol /Codeine # 3 tab 1 tab PO Q4HR PRN 06/18/20 06/18/20 Unknown Zanaflex 4mg TAB 4 mg PO BID 06/18/20 06/24/20 06/22/20 09:00 traMADoL 50 mg PO Q4HR PRN 06/18/20 06/24/20 06/24/20 02:00 Lisinopril 2.5 mg PO DAILY 06/24/20 06/24/20 06/24/20 08:00 Previous Rx's Medication Instructions Recorded Last Taken Type Cyclobenzaprine [Flexeril] 10 mg PO QHS PRN #10 tablet 10/06/20 Unknown Rx Naproxen 500 mg PO Q12H PRN #12 tablet 10/06/20 Unknown Rx Allergies Allergy/AdvReac Type Severity Reaction Status Date / Time No Known Allergies Allergy Verified 05/09/19 18:49 ED Review of Systems ROS: Stated complaint: FALL Other details as noted in HPI Comment: All other systems reviewed and negative Constitutional: denies: chills, fever Eyes: denies: eye pain, eye discharge, vision change ENT: denies: ear pain, throat pain Respiratory: denies: cough, shortness of breath, wheezing Cardiovascular: denies: chest pain, palpitations Endocrine: no symptoms reported Gastrointestinal: abdominal pain. denies: nausea, vomiting, diarrhea, constipation, hematemesis, melena, hematochezia Genitourinary: denies: urgency, dysuria Musculoskeletal: back pain. denies: joint swelling, arthralgia Skin: denies: rash, lesions Neurological: denies: headache, weakness, paresthesias Psychiatric: denies: anxiety, depression Hematological/Lymphatic: denies: easy bleeding, easy bruising ED Past Medical Hx - Past Medical History Previous Medical History?: Yes Hx Hypertension: Yes (X 5 YRS) Hx Congestive Heart Failure: No Hx Diabetes: Yes Hx GERD: Yes Hx Asthma: No Hx COPD: No Hx HIV: No Additional medical history: Anemia - Surgical History Past Surgical History?: Yes Additional Surgical History: Bilateral knee surgery. - Social History Smoking Status: Never Smoker Substance Use Type: None - Medications Home Medications: Home Medications Medication Instructions Recorded Confirmed Last Taken Type Amlodipine Besylate/Benazepril 1 each PO DAILY 05/24/15 06/24/20 06/24/20 08:00 History [Amlodipine-Benazepril 10-20 mg] Janumet 50-500 mg Tablet 1 caplet PO BID 10/20/17 06/24/20 06/23/20 09:00 History Alprazolam 1 mg PO HS PRN 06/18/20 06/24/20 06/17/20 09:00 History Meloxicam 15 mg PO DAILY 06/18/20 06/24/20 06/21/20 09:00 History Motrin 800 MG tab 800 mg PO TID 06/18/20 06/24/20 06/24/20 02:00 History Tylenol /Codeine # 3 tab 1 tab PO Q4HR PRN 06/18/20 06/18/20 Unknown History Zanaflex 4mg TAB 4 mg PO BID 06/18/20 06/24/20 06/22/20 09:00 History traMADoL 50 mg PO Q4HR PRN 06/18/20 06/24/20 06/24/20 02:00 History Lisinopril 2.5 mg PO DAILY 06/24/20 06/24/20 06/24/20 08:00 History Cyclobenzaprine [Flexeril] 10 mg PO QHS PRN #10 tablet 10/06/20 Unknown Rx Naproxen 500 mg PO Q12H PRN #12 tablet 10/06/20 Unknown Rx ED Physical Exam - General Limitations: No Limitations General appearance: alert, in no apparent distress - Head Head exam: Present: atraumatic, normocephalic - Eye Eye exam: Present: normal appearance, PERRL, EOMI - Neck Neck exam: Present: normal inspection, full ROM. Absent: lymphadenopathy - Respiratory Respiratory exam: Present: normal lung sounds bilaterally. Absent: respiratory distress, wheezes, rales, rhonchi, stridor, chest wall tenderness, accessory muscle use, decreased breath sounds, prolonged expiratory - Cardiovascular Cardiovascular Exam: Present: regular rate, normal rhythm, tachycardia, normal heart sounds. Absent: irregular rhythm, systolic murmur, diastolic murmur, rubs , gallop - GI/Abdominal GI/Abdominal exam: Present: soft, tenderness (Mid and lower abdomen area), normal bowel sounds. Absent: distended, guarding, rebound, rigid, diminished bowel sounds - Extremities Exam Extremities exam: Present: normal inspection, full ROM, normal capillary refill. Absent: tenderness - Back Exam Back exam: Present: normal inspection, full ROM, paraspinal tenderness (Lumbar paraspinal). Absent: tenderness, CVA tenderness (R), CVA tenderness (L), muscle spasm, vertebral tenderness, rash noted - Expanded Back Exam Expanded Back exam: Absent: saddle anesthesia Back exam: Negative Straight Leg Raising: Left, Right - Neurological Exam Neurological exam: Present: alert, oriented X3, normal gait - Psychiatric Psychiatric exam: Present: normal affect, normal mood - Skin Skin exam: Present: warm, dry, intact, normal color. Absent: rash ED Course Vital Signs 10/06/20 10/06/20 10/06/20 16:34 17:59 21:01 Temperature 97.6 F Pulse Rate 117 H 87 Respiratory 18 18 17 Rate Blood Pressure 105/82 [Right] O2 Sat by Pulse 98 99 Oximetry - Reevaluation(s) Reevaluation #1: 10/06/20 20:44 Patient is speaking in full sentences with no signs of distress noted. - Consultations Consultation #1: 10/06/20 21:04 Patient has been consulted with Nader Pulido about patient history, physical exam, and labs/imaging results and agrees to the ED plan of care with discharge instructions. ED Medical Decision Making - Lab Data Result diagrams: 10/06/20 18:35 10/06/20 18:35 Lab Results 10/06/20 10/06/20 10/06/20 Range/Units 18:35 18:35 19:49 WBC 16.7 H (4.5-11.0) K/mm3 RBC 5.29 H (3.65-5.03) M/mm3 Hgb 13.1 (11.8-15.2) gm/dl Hct 41.8 (35.5-45.6) % MCV 79 L (84-94) fl MCH 25 L (28-32) pg MCHC 31 L (32-34) % RDW 14.5 (13.2-15.2) % Plt Count 340 (140-440) K/mm3 Lymph % (Auto) 13.6 (13.4-35.0) % Turner % (Auto) 6.5 (0.0-7.3) % Eos % (Auto) 0.3 (0.0-4.3) % Baso % (Auto) 0.7 (0.0-1.8) % Lymph # (Auto) 2.3 (1.2-5.4) K/mm3 Turner # (Auto) 1.1 H (0.0-0.8) K/mm3 Eos # (Auto) 0.0 (0.0-0.4) K/mm3 Baso # (Auto) 0.1 (0.0-0.1) K/mm3 Seg Neutrophils % 78.9 H (40.0-70.0) % Seg Neutrophils # 13.2 H (1.8-7.7) K/mm3 Sodium 141 (137-145) mmol/L Potassium 4.4 (3.6-5.0) mmol/L Chloride 104.1 (98-107) mmol/L Carbon Dioxide 29 (22-30) mmol/L Anion Gap 12 mmol/L BUN 13 (9-20) mg/dL Creatinine 0.8 (0.8-1.3) mg/dL Estimated GFR > 60 ml/min BUN/Creatinine Ratio 16 % Glucose 93 (75-100) mg/dL Calcium 10.1 (8.4-10.2) mg/dL Total Bilirubin 0.90 (0.1-1.2) mg/dL AST 24 (5-40) units/L ALT 25 (7-56) units/L Alkaline Phosphatase 86 (35-129) units/L Total Protein 7.9 (6.3-8.2) g/dL Albumin 4.7 (3.9-5) g/dL Albumin/Globulin Ratio 1.5 % Urine Color Yellow (Yellow) Urine Turbidity Clear (Clear) Urine pH 5.0 (5.0-7.0) Ur Specific [place] 1.021 (1.003-1.030) Urine Protein <15 mg/dl (Negative) mg/dL Urine Glucose (UA) Neg (Negative) mg/dL Urine Ketones Neg (Negative) mg/dL Urine Blood Neg (Negative) Urine Nitrite Neg (Negative) Ur Reducing Substances Not Reportable Urine Bilirubin Neg (Negative) Urine Ictotest Not Reportable Urine Urobilinogen < 2.0 (<2.0) mg/dL Ur Leukocyte Esterase Neg (Negative) Urine WBC (Auto) 1.0 (0.0-6.0) /HPF Urine RBC (Auto) 3.0 (0.0-6.0) /HPF U Epithel Cells (Auto) < 1.0 (0-13.0) /HPF Urine Mucus 1+ /HPF - EKG Data 10/06/20 20:44 Normal sinus rhythm at [address] or T wave abnormalities. No STEMI. Reviewed and signed by . - Radiology Data [address] [address] Cat Scan Report Signed Patient: CHEY NO JR MR#: [id number] : 1975 Acct:[id number] Age/Sex: 45 / M ADM Date: 10/06/20 Loc: ED Attending Dr: Ordering Physician: CATY BUTCHER NP Date of Service: 10/06/20 Procedure(s): CT abdomen pelvis w con Accession Number(s): [id number] cc: CATY BUTCHER NP CT ABDOMEN AND PELVIS WITH IV CONTRAST INDICATION: pain s/p fall. Left upper quadrant pain after fall COMPARISON: None available. TECHNIQUE: Axial CT images were obtained through the abdomen and pelvis after 100 mL IV contrast. All CT scans at this location are performed using CT dose reduction for ALARA by means of automated exposure control. FINDINGS -- ABDOMEN: Lung Bases: No acute abnormality. Liver: Fatty liver. Gallbladder: Normal. Bile Ducts: Normal. Pancreas: Normal. Spleen: Normal. Adrenals: Normal. Right Kidney and Proximal Ureter: Normal. Left Kidney and Proximal Ureter: Normal. Stomach and Bowel: Normal. Lymph Nodes: No significant adenopathy. Aorta: No significant abnormality. IVC: Normal. Additional Findings: Fat-containing periumbilical hernia.. FINDINGS -- PELVIS: Urinary Bladder and Distal Ureters: Normal. Reproductive Organs: No acute abnormality. Appendix: Normal. Bowel: No acute abnormality. Free Fluid: None. Lymph Nodes: No significant adenopathy. Additional Findings: None. Skeletal System: No acute abnormality. IMPRESSION: 1. No acute process in the abdomen or pelvis. Signer Name: Antonio Cortes MD Signed: 10/06/2020 8:45 PM Workstation Name: [id number] Transcribed By: Dictated By: Antonio Cortes MD Electronically Authenticated By: Antonio Cortes MD Signed Date/Time: 10/06/202044 DD/ 42 TD/TT: [address] [place] [address] XRay Report Signed Patient: CHEY NO JR MR#: [id number] : 1975 Acct:[id number] Age/Sex: 45 / M ADM Date: 10/06/20 Loc: ED Attending Dr: Ordering Physician: CATY BUTCHER NP Date of Service: 10/06/20 Procedure(s): XR pelvis 1-2V Accession Number(s): [id number] cc: CATY BUTCHER NP Fluoro Time In M inutes: PELVIS ONE VIEW INDICATION / CLINICAL INFORMATION: pain s/p fall COMPARISON: None available. FINDINGS: BONES / JOINT(S): No acute fracture or subluxation. There is mild degenerative change in the hip joints bilaterally. SOFT TISSUES: No significant abnormality. ADDITIONAL FINDINGS: None. Signer Name: Wilfrido Dasilva MD Signed: 10/06/2020 6:48 PM Workstation Name: [id number] Transcribed By: SS Dictated By: Wilfrido Dasilva MD Electronically Authenticated By: Wilfrido Dasilva MD Signed Date/Time: 10/06/201847 DD/ 46 TD/TT: [facility] [address] [place] [address] XRay Report Signed Patient: CHEY NO JR MR#: [id number] : 1975 Acct:[id number] Age/Sex: 45 / M ADM Date: 10/06/20 Loc: ED Attending Dr: Ordering Physician: CATY BUTCHER NP Date of Service: 10/06/20 Procedure(s): XR spine lumbosacral 2-3V Accession Number(s): [id number] cc: CATY BUTCHER NP Fluoro Time In Minutes: LUMBAR SPINE 3 VIEWS INDICATION: pain s/p fall COMPARISON: None. FINDINGS: There is no fracture, subluxation, or other acute radiographic abnormality of the lumbar spine. There is scoliotic-like curvature convex to the left. Pedicles appear intact. Disc space heights are maintained. Signer Name: Wilfrido Dasilva MD Signed: 10/06/2020 6:49 PM Workstation Name: [id number] Transcribed By: SS Dictated By: Wilfrido Dasilva MD Electronically Authenticated By: Wilfrido Dasilva MD Signed Date/Time: 10/06/201848 DD/ 47 TD/TT: - Medical Decision Making This is a 45-year-old male that presents with fall with abdominal pain and low back strain. Patient is stable was examined by me. There is no spinal tenderness. There is no cauda equina syndrome during examination. No bladder or bowel instability. Patient received medical treatment in the ED which stated that his symptoms has resolved and subsided. Patient stated family member will drive the patient home after discharge due to possible drowsiness. Vital signs are stable at discharge. Tachycardia resolved after treatment. Patient is discharged with muscle relaxant and Naproxen. Patient was instructed not to operate any machinery while taking muscle relaxant as they cause her drowsiness. Patient was referred to Follow-up with a primary care doctor in 3-5 days or if symptoms worsen and continue return to emergency room as soon as possible. At time of discharge, the patient does not seem toxic or ill in appearance. No acute signs of distress noted. Patient agrees to discharge treatment plan of care. No further questions noted by the patient. This chart is dictated with using [employer] Critical care attestation.: If time is entered above; I have spent that time in minutes in the direct care of this critically ill patient, excluding procedure time. ED Disposition Clinical Impression: Abdominal wall pain Low back strain Qualifiers: Encounter type: initial encounter Qualified Code(s): S39.012A - Strain of muscle, fascia and tendon of lower back, initial encounter Fall Qualifiers: Encounter type: initial encounter Qualified Code(s): W19.XXXA - Unspecified fall, initial encounter Disposition: DC- TO HOME OR SELFCARE Is pt being admited?: No Does the pt Need Aspirin: No Condition: Stable Instructions: Fall Prevention in the Home, Adult, [id number], Cyclobenzaprine tablets Additional Instructions: Follow-up with your primary care doctor in 3-5 days or if symptoms worsen such as bladder or bowel stability, chest pain, short of breath, numbness or tingling sensation in extremities, headache, dizziness, visual changes, nausea vomiting, or abdominal pain, return back to emergency room as was possible. Take naproxen and Flexeril as prescribed. Do not operate heavy machinery while taking Flexeril due to sedation Prescriptions: Cyclobenzaprine [Flexeril] 10 mg PO QHS PRN #10 tablet PRN Reason: Muscle Spasm Naproxen 500 mg PO Q12H PRN #12 tablet PRN Reason: Pain , Severe (7-10) Referrals: PRIMARY CAREMD [Referring] - 3-5 Days CELENA ALICIA MD [Staff Physician] - 3-5 Days Forms: Work/School Release Form(ED) Time of Disposition: 21:10
--- NOTE | 2020-10-06 20:50 | Cat Scan Report ---
CT ABDOMEN AND PELVIS WITH IV CONTRAST INDICATION: pain s/p fall. Left upper quadrant pain after fall COMPARISON: None available. TECHNIQUE: Axial CT images were obtained through the abdomen and pelvis after 100 mL IV contrast. All CT scans a t this location are performed using CT dose reduction for ALARA by means of automated exposure contro l. FINDINGS -- ABDOMEN: Lung Bases: No acute abnormality. Liver: Fatty liver. Gallbladder: Normal. Bile Ducts: Normal. Pancreas: Normal. Spleen: Normal. Adrenals: Normal. Right Kidney and Proximal Ureter: Normal. Left Kidney and Proximal Ureter: Normal. Stomach and Bowel: Normal. Lymph Nodes: No significant adenopathy. Aorta: No significant abnormality. IVC: Normal. Additional Findings: Fat-containing periumbilical hernia.. FINDINGS -- PELVIS: Urinary Bladder and Distal Ureters: Normal. Reproductive Organs: No acute abnormality. Appendix: Normal. Bowel: No acute abnormality. Free Fluid: None. Lymph Nodes: No significant adenopathy. Additional Findings: None. Skeletal System: No acute abnormality. IMPRESSION: 1. No acute process in the abdomen or pelvis. Signer Name: Antonio Cortes MD Signed: 10/06/2020 8:45 PM Workstation Name: [id number]
--- NOTE | 2020-10-07 10:48 | Electrocardiograph Report ---
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
== END 2020-10-06 21:30 | disposition home or self-care (01) ==
LOC: ED 15:32
DX: S39.012A Strain of muscle, fascia and tendon of lower back, initial encounter (principal); R10.30 Lower abdominal pain, unspecified; I10 Essential (primary) hypertension; E11.9 Type 2 diabetes mellitus without complications; K21.9 Gastro-esophageal reflux disease without esophagitis; Z98.890 Other specified postprocedural states; Z79.899 Other long term (current) drug therapy; W01.0XXA Fall on same level from slipping, tripping and stumbling without subsequent striking against object, initial encounter; Y93.89 Activity, other specified; Y92.89 Other specified places as the place of occurrence of the external cause; Y99.8 Other external cause status
CPT/HCPCS: 36415; 72100; 72170; 74177; 80053; 81001; 85025; 93005; 96361; 96374; 99284; J2270; J7030; Q9967